=== PATIENT | male | born 1945 | race Caucasian/White ===

== ENCOUNTER 2021-01-21 07:21 | Day surgery (SDC) | payer MEDICARE, OTHER ==
[~2021-01-21] VITALS: Ht 175.3 cm; Wt 126.9 kg
[2021-01-21] VITALS (8 sets, daily range): BP systolic 118–156; BP diastolic 55–81
[2021-01-21] MEDS ORDERED: diphenhydrAMINE 25mg capsule PO PRN (07:50)
[2021-01-21] MEDS ORDERED: SERT-433 PO (08:08)
[2021-01-21] MEDS ORDERED: LISI40TA13 PO (08:08)
[2021-01-21] MEDS ORDERED: TRIA1CAP6 PO (08:08)
[2021-01-21] MEDS ORDERED: MELO-102 PO (08:08)
[2021-01-21] MEDS ORDERED: ROSU40TA22 PO (08:08)
[2021-01-21] MEDS ORDERED: LABE100T5 PO (08:08)
[2021-01-21] MEDS ORDERED: UBID100C16 PO (08:12)
[2021-01-21] MEDS ORDERED: ACET-1025 PO (08:12)
[2021-01-21] MEDS ORDERED: GLUC1TAB21 PO (08:12)
[2021-01-21] MEDS ORDERED: FLUT16SP2 BOTHNARES (08:15)
[2021-01-21] MEDS ORDERED: ASPI-611 PO (08:15)
[2021-01-21] MEDS ORDERED: VITAMIN D3 (08:21)
[2021-01-21] MEDS ORDERED: CLOB15OI3 TOP (08:21)
[2021-01-21] MEDS ORDERED: OMEG1CAP46 PO (08:21)
[2021-01-21] MEDS ORDERED: MULT-1085 PO (08:21)
[2021-01-21] MEDS ORDERED: midazolam 1 mg/ML 2ml injection ONE ×2 (08:24→09:16)
[2021-01-21] MEDS ORDERED: fentaNYL/PF 50MCG/1 ML 2ML syringe ONE (08:24)
[2021-01-21] MEDS ORDERED: LIDOcaine 1% (10mg/ml)w/preservative injection 20ml MDV ONE (08:25)
[2021-01-21] MEDS ORDERED: heparin 1,000unit/ml 10ml vial 10 ML ONE ×2 (08:25→10:01)
[2021-01-21] MEDS ORDERED: iohexol 350 MG/ML 50ML vial IV ONE (08:25)
[2021-01-21] MEDS ORDERED: iohexol 350MG/ML 100ml bottle IV ONE ×3 (08:25→10:01)
[2021-01-21 08:39] LABS: BASOPHILS % (AUTO) 0.4 % (0-1); EOSINOPHILS # (AUTO) 0.3 X10'3 (0-0.9); EOSINOPHILS % (AUTO) 4.4 % (0-6); HEMATOCRIT 44.7 % (42.0-52.0); HEMOGLOBIN 14.6 g/dl (14.0-17.9); LYMPHOCYTES # (AUTO) 1.8 X10'3 (1.1-4.8); LYMPHOCYTES % (AUTO) 23.2 % (21-51); MEAN CORPUSCULAR HGB CONC 32.7 g/dL (33.0-36.5); MEAN CORPUSCULAR VOLUME 97.8 FL (78-98); MEAN PLATELET VOLUME 7.6 FL (7.4-10.4); MONOCYTES # (AUTO) 0.9 X10'3 (0-0.9); NEUTROPHILS # (AUTO) 4.6 X10'3 (1.8-7.7); PLATELET COUNT 213 X10'3 (140-440); RED BLOOD COUNT 4.57 X10'6 (4.70-6.10); RED CELL DISTRIBUTION WIDTH 13.5 % (11.5-14.5); WHITE BLOOD COUNT 7.6 X10'3 (4.5-11.0)
[2021-01-21 08:52] LABS: ALBUMIN 3.6 G/DL (3.4-5.0); ANION GAP 12 (8-16); BLOOD UREA NITROGEN 27 MG/DL (7-18); BUN/CREATININE RATIO 22.9 (5.4-32.0); CALCIUM 8.4 MG/DL (8.5-10.1); CHLORIDE 109 MMOL/L (99-107); CREATININE 1.18 MG/DL (0.60-1.10); GLUCOSE 102 MG/DL (70-104); MAGNESIUM 2.1 MG/DL (1.5-2.4); POTASSIUM 4.7 MMOL/L (3.5-5.1); SODIUM 142 MMOL/L (135-145); TOTAL CARBON DIOXIDE 21.2 MMOL/L (24-32); eGFR 60 ML/MIN
[2021-01-21] MEDS ORDERED: pneumococcal 23-VAL P-sac vacc 25 mcg/0.5ml vial IMVAC ONE (09:05)
[2021-01-21] MEDS ORDERED: clopidogrel 300mg tablet ONE (10:33)
[2021-01-21] MEDS ORDERED: normal saline 1000ml 1,000 ML IV SCH (10:55)
[2021-01-21] MEDS ORDERED: HYDROcodone/acetaminophen 5mg/325mg tablet PO PRN (10:55)
[2021-01-21] MEDS ORDERED: ondansetron/PF 4mg/2ml inj IV PRN (10:55)
[2021-01-21] MEDS ORDERED: HYDROcodone/acetaminophen 10/325mg tab PO PRN (10:55)
[2021-01-21] MEDS ORDERED: proCHLORperazine 10 MG/2 ml inj IV PRN (10:55)
== END 2021-01-21 13:45 | disposition home or self-care (01) ==
LOC: SSTAY O 07:21
PROVIDERS: ATTEND Internal Medicine Cardiovascular Disease
DX: R94.39 Abnormal result of other cardiovascular function study (principal); I25.118 Atherosclerotic heart disease of native coronary artery with other forms of angina pectoris; I10 Essential (primary) hypertension; E78.5 Hyperlipidemia, unspecified; G47.30 Sleep apnea, unspecified; Z79.82 Long term (current) use of aspirin; Z79.899 Other long term (current) drug therapy; Z96.642 Presence of left artificial hip joint; Z95.1 Presence of aortocoronary bypass graft; Z95.0 Presence of cardiac pacemaker; Z90.49 Acquired absence of other specified parts of digestive tract; Z98.890 Other specified postprocedural states; Z72.89 Other problems related to lifestyle; Z82.49 Family history of ischemic heart disease and other diseases of the circulatory system; Z80.9 Family history of malignant neoplasm, unspecified
CPT/HCPCS: 36415; 80048; 83735; 85025; 85610; 93005; 93459; 99152; 99153; C1751; C1760; C1769; C1874; C1894; C9600; J1644; J2001; J2250; J3010; Q9967; A4620; A6258

== ENCOUNTER 2023-06-08 07:26 | Day surgery (SDC) | payer MEDICARE, OTHER ==
[2023-06-08] VITALS (10 sets, daily range): BP systolic 157–188; BP diastolic 63–87; PULSE 65–81; RESP 16; TEMP 98.3; O2SAT 92–96
[~2023-06-08] VITALS: Ht 172.7 cm; Wt 136.7 kg
[~2023-06-08 07:26] MED LIST: ACET-1025 PO; ASPI-611 PO; CLOB15OI3 TOP; FLUT16SP2 BOTHNARES; GLUC1TAB21 PO; LABE100T8 PO; LISI40TA13 PO; MELO-102 PO; MULT-1085 PO; OMEG1CAP46 PO; ROSU40TA22 PO; SERT-433 PO; TRIA1CAP88 PO; UBID100C16 PO; VITAMIN D3
[2023-06-08] MEDS ORDERED: normal saline 1,000 ML IV SCH (07:50)
[2023-06-08] MEDS ORDERED: diphenhydrAMINE 25mg capsule PO PRN (07:50)
[2023-06-08] MEDS ORDERED: sodium bicarbonate 1meq/ml syr 150 ML in dextrose 5%-water 1,000 ML IV SCH (07:50)
[2023-06-08] MEDS ORDERED: EZET10TA48 PO (08:04)
[2023-06-08] MEDS ORDERED: CLOP75TA34 PO (08:04)
[2023-06-08] MEDS ORDERED: RISA150P (08:05)
[2023-06-08 08:41] LABS: BASOPHILS % (AUTO) 0.4 % (0-1); EOSINOPHILS # (AUTO) 0.2 X10'3 (0-0.9); EOSINOPHILS % (AUTO) 2.9 % (0-6); HEMATOCRIT 41.8 % (42.0-52.0); HEMOGLOBIN 13.8 g/dl (14.0-17.9); LYMPHOCYTES # (AUTO) 1.5 X10'3 (1.1-4.8); LYMPHOCYTES % (AUTO) 20.7 % (21-51); MEAN CORPUSCULAR HEMOGLOBIN 31.9 PG (27.0-31.0); MEAN CORPUSCULAR VOLUME 96.8 FL (78-98); MEAN PLATELET VOLUME 7.3 FL (7.4-10.4); MONOCYTES # (AUTO) 0.8 X10'3 (0-0.9); MONOCYTES % (AUTO) 11.8 % (2-12); NEUTROPHILS # (AUTO) 4.6 X10'3 (1.8-7.7); NEUTROPHILS % (AUTO) 64.2 % (42-75); PLATELET COUNT 193 X10'3 (140-440); RED BLOOD COUNT 4.31 X10'6 (4.70-6.10); WHITE BLOOD COUNT 7.2 X10'3 (4.5-11.0)
[2023-06-08 08:46] LABS: PROTHROMBIN TIME 10.6 SECONDS (9.0-12.0)
[2023-06-08 08:47] LABS: ALBUMIN 3.4 G/DL (3.4-5.0); ANION GAP 8 (8-16); BLOOD UREA NITROGEN 24 MG/DL (7-18); BUN/CREATININE RATIO 19.7 (10.0-20.0); CHLORIDE 105 MMOL/L (99-107); CREATININE 1.22 MG/DL (0.60-1.10); GLUCOSE 110 MG/DL (70-104); MAGNESIUM 1.6 MG/DL (1.5-2.4); POTASSIUM 4.7 MMOL/L (3.5-5.1); SODIUM 139 MMOL/L (135-145); TOTAL CARBON DIOXIDE 26.2 MMOL/L (24-32); eCRCL 50 ML/MIN; eGFR 58 ML/MIN
[2023-06-08] MEDS ORDERED: LIDOcaine 1% (10mg/ml) 2ml vial ONE (10:07)
[2023-06-08] MEDS ORDERED: verapamil 2.5 mg/ml inj IV ONE (10:07)
[2023-06-08] MEDS ORDERED: iohexol 350MG/ML 100ml bottle IV ONE ×2 (10:07→12:08)
[2023-06-08] MEDS ORDERED: midazolam 1 mg/ML 2ml injection ONE ×2 (10:07→11:39)
[2023-06-08] MEDS ORDERED: fentaNYL/PF 50MCG/1 ML 2ML syringe ONE (10:07)
[2023-06-08] MEDS ORDERED: heparin 1,000unit/ml 10ml vial 10 ML ONE (10:07)
[2023-06-08] MEDS ORDERED: iohexol 350 MG/ML 50ML vial IV ONE ×2 (10:07→11:57)
[2023-06-08] MEDS ORDERED: nitroGLYCERIN 500mcg/5mL D5W 5 ML IV ONE (10:08)
[2023-06-08] MEDS ORDERED: LIDOcaine 1% 30ml preserv. free vial ONE (10:40)
[2023-06-08] MEDS ORDERED: clopidogrel 300mg tablet ONE (12:17)
[2023-06-08] MEDS ORDERED: hydrALAZINE 20mg/ml inj. IV ONE (12:28)
== END 2023-06-08 16:07 | disposition home or self-care (01) ==
LOC: SSTAY O 07:26
PROVIDERS: ATTEND Internal Medicine Cardiovascular Disease
DX: I25.118 Atherosclerotic heart disease of native coronary artery with other forms of angina pectoris (principal); I25.718 Atherosclerosis of autologous vein coronary artery bypass graft(s) with other forms of angina pectoris; I49.5 Sick sinus syndrome; E78.5 Hyperlipidemia, unspecified; I10 Essential (primary) hypertension; G47.30 Sleep apnea, unspecified; I87.2 Venous insufficiency (chronic) (peripheral); Z95.5 Presence of coronary angioplasty implant and graft; Z95.0 Presence of cardiac pacemaker; Z79.899 Other long term (current) drug therapy; Z79.01 Long term (current) use of anticoagulants; Z79.82 Long term (current) use of aspirin
CPT/HCPCS: 36415; 80048; 83735; 85025; 85610; 93005; 93459; 99152; 99153; C1874; C9600; J0360; J1644; J2250; J3010; J3490; J7030; J7070; Q0163; Q9967; A6258; C1725; C1751; C1760; C1769; C1894